=== PATIENT | female | born 1965 | race Two or more races ===

== ENCOUNTER 2020-01-19 07:49 | Outpatient (REF) | payer OTHER, SELFPAY ==
--- NOTE | 2020-01-19 08:00 | MM_ITS ---
EXAMINATION: MM SCREENING DIGITAL BREAST TOMOSYNTHESIS, BILATERAL CLINICAL INFORMATION: Screening. Asymptomatic. The lifetime risk of breast cancer based on the Tyrer-Cuzick Model is 9%. COMPARISON: Mammography: 01/13/2019, 11/23/2017 TECHNIQUE: Digital breast tomosynthesis is performed in both the craniocaudal and mediolateral oblique views along with computer-aided detection (CAD). Synthesized 2D images are generated from the tomosynthesis. Additional left cleavage and left MLO views are provided. FINDINGS: The breasts are almost entirely fatty (ACR BI-RADS breast composition Category a). There are no significant masses, abnormal calcifications, or other abnormalities. Parenchymal pattern is similar to prior exams. IMPRESSION: No mammographic evidence of malignancy. ASSESSMENT: BI-RADS 1: Negative RECOMMENDATION: Routine annual mammography screening. This patient's information was entered into a reminder system with a target due date for their next mammogram.
== END 2020-01-19 07:50 | disposition home or self-care (01) ==
LOC: HO.MAMMO 07:49
PROVIDERS: PCP Internal Medicine; Visit Provider Internal Medicine
DX: Z12.31 Encounter for screening mammogram for malignant neoplasm of breast (principal)
CPT/HCPCS: 77063; 77067; 78014

== ENCOUNTER → 2020-02-08 09:12 | Outpatient (BNVA) | payer OTHER, SELFPAY | PROVIDERS: PCP Internal Medicine; Visit Provider Internal Medicine | DX: I69.30 Unspecified sequelae of cerebral infarction (principal); Z51.81 Encounter for therapeutic drug level monitoring; Z79.01 Long term (current) use of anticoagulants | CPT/HCPCS: 85610; 99211 ==

== ENCOUNTER → 2020-03-07 09:03 | Outpatient (BNVA) | payer OTHER, SELFPAY | PROVIDERS: PCP Internal Medicine; Visit Provider Internal Medicine | DX: I69.30 Unspecified sequelae of cerebral infarction (principal); Z51.81 Encounter for therapeutic drug level monitoring; Z79.01 Long term (current) use of anticoagulants | CPT/HCPCS: 85610; 99211 ==

== ENCOUNTER → 2020-03-18 09:27 | Outpatient (BNVA) | payer OTHER, SELFPAY | PROVIDERS: PCP Internal Medicine; Visit Provider Internal Medicine | DX: I69.30 Unspecified sequelae of cerebral infarction (principal); Z51.81 Encounter for therapeutic drug level monitoring; Z79.01 Long term (current) use of anticoagulants | CPT/HCPCS: 85610; 99211 ==

== ENCOUNTER → 2020-04-01 09:04 | Outpatient (BNVA) | payer OTHER, SELFPAY | PROVIDERS: PCP Internal Medicine; Visit Provider Internal Medicine | DX: I69.30 Unspecified sequelae of cerebral infarction (principal); Z51.81 Encounter for therapeutic drug level monitoring; Z79.01 Long term (current) use of anticoagulants | CPT/HCPCS: 85610; 99211 ==

== ENCOUNTER → 2020-04-22 08:59 | Outpatient (BNVA) | payer OTHER, SELFPAY | PROVIDERS: PCP Internal Medicine; Visit Provider Internal Medicine | DX: Z86.73 Personal history of transient ischemic attack (TIA), and cerebral infarction without residual deficits (principal); Z51.81 Encounter for therapeutic drug level monitoring; Z79.01 Long term (current) use of anticoagulants | CPT/HCPCS: 85610; 99211 ==

== ENCOUNTER 2020-05-01 08:32 | Outpatient (REF) | payer OTHER, SELFPAY ==
[2020-05-01 09:46] LABS: MANUAL DIFF FLAG NO
[2020-05-01 10:10] LABS: Basophils Absolute Auto 0.1 X10*3/uL (0.0-0.2); Eosinophils Absolute Auto 0.1 X10*3/uL (0.0-0.4); Eosinophils Percent Auto 2.3 % (0-4); Hematocrit 41.1 % (37-47); Hemoglobin 12.6 g/dl (12.0-16.0); Imm Gran Abs Auto 0.01 X10*3/uL (0.00-0.03); Imm Gran Pct Auto 0.2 % (0.0-0.4); Lymphocytes Absolute Auto 1.8 X10*3/uL (1.2-4.9); Lymphocytes Percent Auto 33.9 % (20-40); Mean Corpuscular HGB Conc 30.7 g/dl (31.0-35.0); Mean Corpuscular Hemoglobin 25.1 pg (27.0-33.0); Monocytes Absolute Auto 0.5 X10*3/uL (0.1-1.2); Monocytes Percent Auto 9.3 % (2-11); Neutrophils Absolute Auto 2.8 X10*3/uL (2.0-8.3); Neutrophils Percent Auto 53.3 % (45-73); Platelet Count 205 X10*3/uL (160-400); Red Blood Count 5.01 X10*6/uL (4.20-5.50); Red Cell Distribution Width 15.7 % (11.0-16.0); White Blood Count 5.3 X10*3/uL (4.8-10.8)
[2020-05-01 10:41] LABS: Alanine Aminotransferase 26 U/L (0-31); Alkaline Phosphatase 87 U/L (39-117); Anion Gap 12 (12-20); Aspartate Amino Transferase 20 U/L (5-31); Bilirubin Total 0.3 mg/dL (0.0-1.0); Blood Urea Nitrogen 15 mg/dL (9-16); Calcium 8.5 mg/dL (8.4-10.2); Carbon Dioxide 27 mmol/L (22-29); Chloride 106 mmol/L (96-108); Cholesterol 122 mg/dL; Estimated Glomerular Filt Rate > 60; Glucose Fasting 101 mg/dL (60-99); HDL Cholesterol 44 mg/dL; LDL Cholesterol Calculated 66 mg/dl; Sodium 141 mmol/L (135-145); Total Protein 6.5 g/dL (6.5-8.0); Triglycerides 60 mg/dL
[2020-05-01 11:08] LABS: Creatinine Urine 218.25 mg/dL; Microalbum/Creatinine Ratio Ur 4.5 ug/mg cr
[2020-05-06 09:52] LABS: Vitamin D 25-OH, D2 <4 ng/mL; Vitamin D 25-OH, D3 25 ng/mL; Vitamin D 25-OH, Total 25 ng/mL (30-100)
== END 2020-05-01 08:33 | disposition home or self-care (01) ==
LOC: HO.LAB 08:32
PROVIDERS: Absent Provider Nurse Practitioner Family; PCP Internal Medicine; Visit Provider Internal Medicine
DX: Z01.818 Encounter for other preprocedural examination (principal); J45.909 Unspecified asthma, uncomplicated; E78.00 Pure hypercholesterolemia, unspecified; E11.9 Type 2 diabetes mellitus without complications; E55.9 Vitamin D deficiency, unspecified; E78.5 Hyperlipidemia, unspecified
CPT/HCPCS: 36415; 80053; 80061; 82043; 82306; 85025

== ENCOUNTER → 2020-05-07 09:14 | Outpatient (BNVA) | payer OTHER, SELFPAY | PROVIDERS: PCP Internal Medicine; Visit Provider Internal Medicine | DX: I69.30 Unspecified sequelae of cerebral infarction (principal); Z51.81 Encounter for therapeutic drug level monitoring; Z79.01 Long term (current) use of anticoagulants | CPT/HCPCS: 85610; 99211 ==

== ENCOUNTER → 2020-05-16 08:35 | Outpatient (BNVA) | payer OTHER, SELFPAY | PROVIDERS: PCP Internal Medicine; Visit Provider Internal Medicine Cardiovascular Disease | DX: R07.2 Precordial pain (principal); I10 Essential (primary) hypertension; Z86.73 Personal history of transient ischemic attack (TIA), and cerebral infarction without residual deficits | CPT/HCPCS: 99212 ==

== ENCOUNTER → 2020-06-04 09:25 | Outpatient (BNVA) | payer OTHER, SELFPAY | PROVIDERS: PCP Internal Medicine; Visit Provider Internal Medicine | DX: I69.30 Unspecified sequelae of cerebral infarction (principal); Z51.81 Encounter for therapeutic drug level monitoring; Z79.01 Long term (current) use of anticoagulants | CPT/HCPCS: 85610; 99211 ==

== ENCOUNTER → 2020-06-19 08:03 | Outpatient (REF) | payer OTHER, SELFPAY ==
--- NOTE | ~2020-06-19 | NM_ITS ---
Myocardial perfusion study Indication: Chest pain to evaluate for myocardial ischemia Technique: The patient was brought in for a Lexiscan perfusion study on 06/19/2020. Patient performed low-level exercise and was injected 0.4 mg of Lexiscan intravenously. Within a minute of injection, 35 mCi of sestamibi was given intravenously. Images were obtained using the SPECT gamma camera interlaced with the gating device. Images were obtained in supine position. Resting perfusion study was performed on 06/20/2020. Patient was administered 35 mCi of sestamibi intravenously at rest. Images were then obtained in supine position. Images were obtained with and without CT attenuation. Total DLP 138 mGy-cm. Images were processed with the software and compared side to side in short axis, horizontal long axis and vertical long axis views. Findings: The stress perfusion study showed both attenuated and not attenuated corrected images show normal uptake of radiotracer in all segments of LV myocardium. Suggestion of left ventricle hypertrophy.. The gated study shows normal LV systolic function with calculated LVEF of 60%. LV cavity is normal size. The gated study shows normal systolic wall thickening and contraction of segments. Resting study shows non attenuated images show normal uptake of radiotracer in all segments of LV myocardium. Gating at rest reveals normal systolic wall motion with ejection fraction at 64%. The findings are consistent with normal myocardial perfusion. NM/NM richard perf SPECT rest & str Impression: 1. Myocardial perfusion imaging study shows normal myocardial perfusion 2. Gated LVEF is 60% 3. Transient ischemic dilatation not present EKG is nondiagnostic for ischemia
--- NOTE | 2020-06-19 08:07 | CA_ITS ---
Transthoracic Echocardiogram Patient (Last, First, Middle): Lori Arellano, Gender: Female Date of : 1965 Age: 54 Procedure Date: 06/19/2020 Procedure Type: Transthoracic Echocardiogram Location: OP Height: 160.02 cm Weight: 106.6 kg BSA: 2.07 m2 Heart Rate: bpm BP: 130 / 71 mmHg Gluing Machine Offbearer: VARUN Referring MD: Gilberto White MD Symptoms: R07.2 - Precordial pain Study Quality: Fair ECG Rhythm: Sinus Conclusions: - The left ventricular systolic function is normal. The visually estimated ejection fraction is between 65-70%. - No obvious valvular pathology seen on this study. Findings Procedure Information Contrast agent, definity, is being given per protocol without apparent complications. Left Ventricle Normal left ventricular cavity size. There is mildly increased left ventricular wall thickness. The left ventricular systolic function is normal. The visually estimated ejection fraction is between 65-70%. There is no evidence of regional wall motion abnormalities. E/E prime ratio is between 8 and 15 consistent with indeterminate filling pressures. Evidence suggests grade I (mild) diastolic dysfunction. Right Ventricle Normal right ventricular cavity size and systolic function. Atria The left atrium is normal in size. The right atrium is normal in size. Aortic Valve There is a normal trileaflet aortic valve. There is no aortic valve stenosis. There is no aortic valve regurgitation. Mitral Valve The mitral valve appears normal. There is no mitral valve regurgitation. There is no mitral valve stenosis. Pulmonic Valve The pulmonic valve was not well visualized. Tricuspid Valve Normal tricuspid valve structure. There is trace tricuspid valve regurgitation. The pulmonary artery systolic pressure is normal. Great Vessels The aortic annulus, sinuses of valsalva, and asc aorta are normal in size. Venous The inferior vena cava is normal in size and collapses greater than 50% with inspiration. Pericardium/Pleural There is no evidence of pericardial effusion. Prior Study Comparison No prior study available for comparison. Recommendations, Care & Conclusions No obvious valvular pathology seen on this study. Measurements 2D Linear Measurements IVSd: 1.38 0.6-0.9/0.6-1.0 cm LVIDd: 4.06 3.9-5.3/4.2-5.9 cm LVIDd Index: 1.96 2.4-3.2/2.2-3.1 cm/m2 LVIDs: 2.33 2.0-3.6 cm LVPWd: 1.13 0.7-1.1 cm Ao Root: 2.50 2.1-3.5 cm LA Diam: 3.90 2.7-3.8/3.0-4.0 cm LAIDs Index: 1.88 1.5-2.3 cm/m2 LV Mass: 225.34 67-162/88-224 g LV Mass Index: 108.86 43-95/49-115 g/m2 LVOT Diam: 2.00 3.0+(-)1.3 cm Mitral Valve MV Pk E: 0.67 MV PK A: 0.53 MV Decel Time: 117.00 E/A: 1.30 E'Lateral: 6.85 E'Medial: 5.44 E/E' Med: 12.40 E/E' Lat: 9.80 PHT: 34.00 MVA PHT: 6.47 Decel [place]: 5.77 Aortic Valve AoV Pk Ari: 1.30 AoV Pk Grad: 7.00 LVOT LVOT Pk Ari: 1.26 LVOT Mn Ari: 0.76 LVOT VTI: 0.24 LVOT Pk Grad: 6.00 LVOT Mn Grad: 3.00 LVOT Diam: 2.00 LVOT Area: 3.14 Diastolic Function MV Pk E: 0.67 MV Pk A: 0.53 E/A: 1.30 E'Medial: 5.44 E/E' Med: 12.40 E' Laterial: 6.85 E/E' Lat: 9.80 Tricuspid Valve TR Pk Ari: 2.09 TR Pk Grad: 17.00 RA Press: 3.00 RVSP: 20.00 Great Vessels Aorta Ao Root-2D: 2.50 2.0-3.7 cm Ao Asc: 3.40 2.1-3.4 cm Updated in Other Vendor System with Status of Final Vikas Covington MD electronically signed on 06/20/2020 11:43:27 AM with status of Final
--- NOTE | 2020-06-19 08:07 | CA_ITS ---
Acquisition Time: 2020-06-19 09:54:50 Total Exercise Time: 00:02:00 Test Indications: Abnormal ECG Medications: WARFARIN OMEORAZOLE METFORMIN LISINOPRIL ATORVASTATIN Protocol: LEXISCAN Max HR: 109 BPM 66% of Pred: 165 BPM Max BP: 142/078 mmHG Max Work Load: 1.0 METS Pharmacological stress test using Lexiscan while sitting and kicking her feet. Pt tolerated well, denies any anginal sx. EKG without any arrhythmias, non-diagnostic for ischemia. Nuclear images to follow. Normotensive response to test. Test reviewed with Dr. White. Referred By: Gilberto White Overread By:
== END ==
LOC: HO.CARD 08:03
PROVIDERS: Visit Provider Internal Medicine Cardiovascular Disease
DX: R07.2 Precordial pain (principal); I10 Essential (primary) hypertension; E11.9 Type 2 diabetes mellitus without complications; Z86.73 Personal history of transient ischemic attack (TIA), and cerebral infarction without residual deficits
CPT/HCPCS: 78452; 93017; 93306; A9500; J0280; J2785; Q9957

== ENCOUNTER → 2020-06-25 08:37 | Outpatient (BNVA) | payer OTHER, SELFPAY | PROVIDERS: PCP Internal Medicine; Visit Provider Internal Medicine Cardiovascular Disease | DX: R07.9 Chest pain, unspecified (principal); Z79.899 Other long term (current) drug therapy; Z79.82 Long term (current) use of aspirin; Z87.891 Personal history of nicotine dependence | CPT/HCPCS: 99212 ==

== ENCOUNTER → 2020-07-02 09:19 | Outpatient (BNVA) | payer OTHER, SELFPAY | PROVIDERS: PCP Internal Medicine; Visit Provider Internal Medicine | DX: I69.30 Unspecified sequelae of cerebral infarction (principal); Z51.81 Encounter for therapeutic drug level monitoring; Z79.01 Long term (current) use of anticoagulants | CPT/HCPCS: 85610; 99211 ==

== ENCOUNTER → 2020-07-16 08:46 | Outpatient (BNVA) | payer OTHER, SELFPAY | PROVIDERS: PCP Internal Medicine; Visit Provider Internal Medicine | DX: I69.30 Unspecified sequelae of cerebral infarction (principal); Z51.81 Encounter for therapeutic drug level monitoring; Z79.01 Long term (current) use of anticoagulants | CPT/HCPCS: 85610; 99211 ==

== ENCOUNTER → 2020-07-22 12:06 | Outpatient (BNVA) | payer OTHER, SELFPAY | PROVIDERS: Visit Provider Surgery ==

== ENCOUNTER → 2020-08-13 08:58 | Outpatient (BNVA) | payer OTHER, SELFPAY | PROVIDERS: PCP Internal Medicine; Visit Provider Internal Medicine | DX: Z86.73 Personal history of transient ischemic attack (TIA), and cerebral infarction without residual deficits (principal); Z51.81 Encounter for therapeutic drug level monitoring; Z79.01 Long term (current) use of anticoagulants | CPT/HCPCS: 85610; 99211 ==

== ENCOUNTER → 2020-09-04 09:07 | Outpatient (BNVA) | payer OTHER, SELFPAY | PROVIDERS: PCP General Practice; Visit Provider Internal Medicine | DX: Z86.73 Personal history of transient ischemic attack (TIA), and cerebral infarction without residual deficits (principal); Z51.81 Encounter for therapeutic drug level monitoring; Z79.01 Long term (current) use of anticoagulants | CPT/HCPCS: 85610; 99211 ==

== ENCOUNTER → 2020-10-29 10:08 | Outpatient (BNVA) | payer OTHER, SELFPAY | PROVIDERS: PCP General Practice; Referring Provider General Practice; Visit Provider Surgery | DX: E66.9 Obesity, unspecified (principal); Z68.39 Body mass index [BMI] 39.0-39.9, adult | CPT/HCPCS: 99202 ==

== ENCOUNTER → 2020-11-19 13:24 | Outpatient (BNVA) | payer OTHER, SELFPAY | PROVIDERS: PCP General Practice; Referring Provider General Practice; Visit Provider Nurse Practitioner Family | DX: Z01.818 Encounter for other preprocedural examination (principal); E66.01 Morbid (severe) obesity due to excess calories; E78.00 Pure hypercholesterolemia, unspecified; E11.9 Type 2 diabetes mellitus without complications; I10 Essential (primary) hypertension; Z86.73 Personal history of transient ischemic attack (TIA), and cerebral infarction without residual deficits | CPT/HCPCS: 93005; 99212 ==

== ENCOUNTER → 2020-11-21 08:20 | Outpatient (BNVA) | payer OTHER, SELFPAY | PROVIDERS: PCP General Practice; Visit Provider Surgery | CPT/HCPCS: Q3014 ==

== ENCOUNTER → 2020-11-25 09:48 | Outpatient (BNVA) | payer OTHER, SELFPAY | PROVIDERS: PCP General Practice; Referring Provider General Practice; Visit Provider Dietitian, Registered | DX: E66.9 Obesity, unspecified (principal); Z68.39 Body mass index [BMI] 39.0-39.9, adult | CPT/HCPCS: 97802 ==

== ENCOUNTER 2020-11-28 | Outpatient (REF) | payer OTHER, SELFPAY ==
[2020-11-30 15:11] LABS: H Pylori Breath Test DETECTED (NOT DETECTED)
== END 2020-11-28 00:01 | disposition home or self-care (01) ==
LOC: HO.LNP
PROVIDERS: Visit Provider Surgery
DX: Z01.818 Encounter for other preprocedural examination (principal); Z11.0 Encounter for screening for intestinal infectious diseases
CPT/HCPCS: 83013

== ENCOUNTER → 2020-11-28 09:37 | Outpatient (BNVA) | payer OTHER, SELFPAY | PROVIDERS: PCP General Practice; Visit Provider Physician Assistant | DX: Z11.0 Encounter for screening for intestinal infectious diseases (principal) | CPT/HCPCS: 99211 ==

== ENCOUNTER → 2020-12-31 08:16 | Outpatient (BNVA) | payer OTHER, SELFPAY | PROVIDERS: PCP General Practice; Referring Provider General Practice; Visit Provider Dietitian, Registered | DX: E66.9 Obesity, unspecified (principal); Z68.39 Body mass index [BMI] 39.0-39.9, adult | CPT/HCPCS: 97803 ==

== ENCOUNTER 2021-01-10 08:02 | Outpatient (REF) | payer OTHER, SELFPAY ==
--- NOTE | ~2021-01-10 | XR_ITS ---
EXAMINATION: XR CHEST CLINICAL INFORMATION: Shortness of breath COMPARISON: Previous chest x-ray November 2015 TECHNIQUE: 2 views of the chest were obtained. FINDINGS: The cardiac and mediastinal contours are normal. The lungs are clear. There is no pleural effusion or pneumothorax. There are degenerative changes spine. There is a small sclerotic density in the left proximal humerus measuring 1 x 2 cm that is stable XR/XR chest 2V IMPRESSION: No evidence for acute disease in chest.
--- NOTE | 2021-01-10 08:11 | ECG_ITS ---
Test Reason : sob Blood Pressure : / mmHG Vent. Rate : 059 BPM Atrial Rate : 059 BPM P-R Int : 168 ms QRS Dur : 080 ms QT Int : 426 ms P-R-T Axes : 051 003 010 degrees QTc Int : 421 ms Sinus bradycardia Inferior infarct , age undetermined Abnormal ECG No previous ECGs available Referred By: Rosie Ochoa Electronically Signed By:SAADIA HA
[2021-01-10 08:53] LABS: MANUAL DIFF FLAG NO
[2021-01-10 08:57] LABS: Basophils Absolute Auto 0.1 X10*3/uL (0.0-0.2); Basophils Percent Auto 1.2 % (0-2); Eosinophils Absolute Auto 0.1 X10*3/uL (0.0-0.4); Eosinophils Percent Auto 1.2 % (0-4); Hemoglobin 13.2 g/dl (12.0-16.0); Imm Gran Abs Auto 0.01 X10*3/uL (0.00-0.03); Imm Gran Pct Auto 0.2 % (0.0-0.4); Lymphocytes Absolute Auto 1.6 X10*3/uL (1.2-4.9); Lymphocytes Percent Auto 31.8 % (20-40); Mean Corpuscular HGB Conc 30.7 g/dl (31.0-35.0); Mean Corpuscular Hemoglobin 25.2 pg (27.0-33.0); Mean Corpuscular Volume 82.1 fL (80-98); Mean Platelet Volume 11.3 fL (9.4-12.3); Monocytes Absolute Auto 0.4 X10*3/uL (0.1-1.2); Monocytes Percent Auto 8.6 % (2-11); Neutrophils Absolute Auto 2.8 X10*3/uL (2.0-8.3); Platelet Count 221 X10*3/uL (160-400); Red Blood Count 5.24 X10*6/uL (4.20-5.50); Red Cell Distribution Width 15.5 % (11.0-16.0); White Blood Count 4.9 X10*3/uL (4.8-10.8)
[2021-01-10 09:19] LABS: Alanine Aminotransferase 23 U/L (0-31); Albumin Level 4.1 g/dL (3.5-5.0); Alkaline Phosphatase 77 U/L (39-117); Anion Gap 12 (12-20); Aspartate Amino Transferase 19 U/L (5-31); Bilirubin Total 0.3 mg/dL (0.0-1.0); Blood Urea Nitrogen 21 mg/dL (9-16); C Reactive Protein 0.42 mg/dL (< or = 0.50); Carbon Dioxide 24 mmol/L (22-29); Chloride 110 mmol/L (96-108); Cholesterol 144 mg/dL; Estimated Glomerular Filt Rate > 60; Glucose Fasting 107 mg/dL (60-99); HDL Cholesterol 43 mg/dL; Iron 43 mcg/dL (30-160); LDL Cholesterol Calculated 92 mg/dl; Percent Iron Saturation 12 % (15-50); Sodium 142 mmol/L (135-145); Total Iron Binding Capacity 354 mcg/dL (228-428); Total Protein 6.7 g/dL (6.5-8.0); Triglycerides 49 mg/dL; Unsaturated Iron Binding 311 ug/dL
[2021-01-10 09:26] LABS: Creatinine Urine 218.69 mg/dL
[2021-01-10 09:43] LABS: Thyroid Stimulating Hormone 2.68 uIU/mL (0.32-4.0); Vitamin D 25-OH Total 32.5 ng/mL (>30)
[2021-01-10 09:56] LABS: Vitamin B12 427 pg/mL (200-900)
[2021-01-10 10:00] LABS: Estimated Average Glucose 126 mg/dL
[2021-01-14 08:47] LABS: Calcium (PTHI) 8.9 mg/dL (8.6-10.4); PTHI 93 pg/mL (14-64)
[2021-01-14 15:52] LABS: Zinc 81 mcg/dL (60-130)
[2021-01-16 10:02] LABS: Vitamin B1 13 nmol/L (8-30)
[2021-01-17 11:20] LABS: Vitamin A 43 mcg/dL (38-98)
== END 2021-01-10 08:03 | disposition home or self-care (01) ==
LOC: HO.XRAY 08:02
PROVIDERS: Internal Medicine; PCP General Practice; Visit Provider Surgery
DX: Z01.818 Encounter for other preprocedural examination (principal); K91.2 Postsurgical malabsorption, not elsewhere classified; R06.02 Shortness of breath; E11.9 Type 2 diabetes mellitus without complications; Z90.3 Acquired absence of stomach [part of]
CPT/HCPCS: 36415; 71046; 80053; 80061; 82043; 82306; 82607; 83036; 83540; 83970; 84425; 84443; 84590; 84630; 85025; 86140; 93005

== ENCOUNTER → 2021-01-14 09:22 | Outpatient (BNVA) | payer OTHER, SELFPAY | PROVIDERS: PCP General Practice; Referring Provider General Practice; Visit Provider Surgery | DX: E66.9 Obesity, unspecified (principal); Z68.38 Body mass index [BMI] 38.0-38.9, adult | CPT/HCPCS: 99212 ==

== ENCOUNTER → 2021-01-16 08:00 | Outpatient (BNVA) | payer OTHER, SELFPAY | PROVIDERS: PCP General Practice; Referring Provider Surgery; Visit Provider Dietitian, Registered | DX: E66.01 Morbid (severe) obesity due to excess calories (principal); Z68.38 Body mass index [BMI] 38.0-38.9, adult | CPT/HCPCS: 97803 ==

== ENCOUNTER 2021-01-31 08:52 | Outpatient (REF) | payer OTHER, SELFPAY ==
--- NOTE | ~2021-01-31 | MM_ITS ---
EXAMINATION: MM SCREENING DIGITAL BREAST TOMOSYNTHESIS, BILATERAL CLINICAL INFORMATION: Screening. Asymptomatic. The lifetime risk of breast cancer based on the Tyrer-Cuzick Model is 7%. COMPARISON: Mammography: 01/19/2020, 01/13/2019, 11/23/2017 TECHNIQUE: Digital breast tomosynthesis is performed in both the craniocaudal and mediolateral oblique views along with computer-aided detection (CAD). Synthesized 2D images are generated from the tomosynthesis. FINDINGS: The breasts are almost entirely fatty (ACR BI-RADS breast composition Category a). Stromal markings are stable. There is no interval mass or developing density. No abnormal calcifications. Parenchymal pattern is similar to prior studies. The axilla and skin contours are unremarkable. MM/MM tomosynthesis screening BI IMPRESSION: No mammographic evidence of malignancy. ASSESSMENT: BI-RADS 1: Negative RECOMMENDATION: Routine annual mammography screening. This patient's information was entered into a reminder system with a target due date for their next mammogram.
[2021-02-02 14:14] LABS: H Pylori Breath Test Negative (Negative)
== END 2021-01-31 08:53 | disposition home or self-care (01) ==
LOC: HO.MAMMO 08:52
PROVIDERS: Surgery; PCP General Practice; Visit Provider General Practice
DX: Z01.818 Encounter for other preprocedural examination (principal); E66.9 Obesity, unspecified; A04.8 Other specified bacterial intestinal infections; Z12.31 Encounter for screening mammogram for malignant neoplasm of breast; Z79.899 Other long term (current) drug therapy; Z87.891 Personal history of nicotine dependence
CPT/HCPCS: 36415; 77063; 77067; 83013; 99212

== ENCOUNTER → 2021-02-25 08:01 | Outpatient (BNVA) | payer OTHER, SELFPAY | PROVIDERS: PCP General Practice; Referring Provider Surgery; Visit Provider Dietitian, Registered | DX: E66.9 Obesity, unspecified (principal); Z68.38 Body mass index [BMI] 38.0-38.9, adult | CPT/HCPCS: 97803 ==

== ENCOUNTER → 2021-03-04 16:03 | Outpatient (BNVA) | payer OTHER, SELFPAY | PROVIDERS: PCP General Practice; Referring Provider General Practice; Visit Provider Physician Assistant Surgical | DX: E66.9 Obesity, unspecified (principal); Z68.38 Body mass index [BMI] 38.0-38.9, adult | CPT/HCPCS: 99212 ==

== ENCOUNTER → 2021-03-24 08:04 | Outpatient (BNVA) | payer OTHER, SELFPAY | PROVIDERS: PCP General Practice; Referring Provider Surgery; Visit Provider Dietitian, Registered ==

== ENCOUNTER → 2021-03-25 08:03 | Outpatient (BNVA) | payer OTHER, SELFPAY | PROVIDERS: PCP General Practice; Visit Provider Dietitian, Registered ==

== ENCOUNTER → 2021-03-26 08:09 | Outpatient (BNVA) | payer OTHER, SELFPAY | PROVIDERS: PCP General Practice; Visit Provider Dietitian, Registered ==

== ENCOUNTER → 2021-03-28 08:08 | Outpatient (BNVA) | payer OTHER, SELFPAY | PROVIDERS: PCP General Practice; Visit Provider Physician Assistant Surgical | DX: Z13.89 Encounter for screening for other disorder (principal) | CPT/HCPCS: Q3014 ==

== ENCOUNTER → 2021-04-03 08:15 | Outpatient (BNVA) | payer OTHER, SELFPAY | PROVIDERS: PCP General Practice; Referring Provider General Practice; Visit Provider Physician Assistant ==

== ENCOUNTER → 2021-04-04 10:32 | Outpatient (BNVA) | payer OTHER, SELFPAY | PROVIDERS: PCP General Practice; Referring Provider General Practice; Visit Provider Surgery | DX: E66.01 Morbid (severe) obesity due to excess calories (principal); K21.9 Gastro-esophageal reflux disease without esophagitis; Z68.37 Body mass index [BMI] 37.0-37.9, adult | CPT/HCPCS: 99212 ==

== ENCOUNTER → 2021-04-09 11:49 | Outpatient (BNVA) | payer OTHER, SELFPAY | PROVIDERS: PCP General Practice; Referring Provider General Practice; Visit Provider Physician Assistant Surgical ==

== ENCOUNTER 2021-04-28 09:18 | Outpatient (REF) | payer OTHER, SELFPAY ==
--- NOTE | ~2021-04-28 | FL_ITS ---
EXAMINATION: XR FLUOROSCOPY UPPER GI WITH AIR CLINICAL INFORMATION: Gastroesophageal reflux disease without esophagitis. COMPARISON: None. TECHNIQUE: Routine upper GI air-contrast study was performed. FINDINGS: Following oral administration of thick barium and effervescent granules, there is normal propagation of bolus from the oral cavity through the pharynx and esophagus and into the stomach without any evidence of obstruction, narrowing or stricture. On placing patient supine and prone lying, the course, caliber and peristalsis of the stomach and the duodenal bulb are normal. The mucosal pattern of the esophagus, stomach and the duodenum is normal. There is [id number] gastroesophageal reflux without hiatal hernia. FLUOROSCOPY TIME: 2.3 minutes DOSE AREA PRODUCT: 273 uGy-m2 (microgray-meter squared) FL/FL upper GI w air IMPRESSION: Moderate to large gastroesophageal reflux otherwise unremarkable upper GI study
--- NOTE | ~2021-04-28 | US_ITS ---
EXAMINATION: US COMPLETE ABDOMEN WITH LIVER ELASTOGRAPHY CLINICAL INFORMATION: Obesity COMPARISON: Previous CT of the abdomen and pelvis November 2015 TECHNIQUE: Real-time imaging of the abdominal viscera. Noninvasive ultrasound liver fibrosis assessment is performed using Galen ElastPQ point quantification shear wave elastography (2D-SWE) with a C5-2 MHz transducer. Multiple elastography samples are obtained. FINDINGS: PANCREAS: Normal. ABDOMINAL AORTA: There is mild ectasia of the distal abdominal aorta measuring 2.4 cm in AP dimension. INFERIOR VENA CAVA: Visualized portions are normal. LIVER: Liver echotexture is slightly increased. The liver demonstrates normal size and contour. No focal lesion or intrahepatic biliary duct dilatation. The right lobe measures 15.5 cm in length. The left lobe measures 10 cm in length. Portal flow is normal/hepatopedal Shear wave liver elastography median stiffness is 1.3 m/s (reference: normal median stiffness is 1.3 m/s or less). IQR/median stiffness to assess sampling precision is 0.15 (reference: good quality data set is IQR/median stiffness of 0.15 or less). GALLBLADDER: Normal. The gallbladder is physiologically distended without evidence of stones, sludge, polyps, wall thickening or pericholecystic fluid. COMMON BILE DUCT: Normal in caliber measuring 0.3 cm in diameter. RIGHT KIDNEY: Normal. No hydronephrosis. No renal calculi or focal parenchymal lesions. The kidney measures 10 cm in maximum dimension. LEFT KIDNEY: Normal. No hydronephrosis. No renal calculi or focal parenchymal lesions. The kidney measures 10 cm in maximum dimension. SPLEEN: Normal. The spleen measures 10 cm in maximum dimension. FREE FLUID: None. US/US abdomen comp w elastography IMPRESSION: 1. Impression: Slightly echogenic liver. Mild ectasia of the distal abdominal aorta. 2. Liver elastography: Adequate liver sampling. High probability of being normal. REFERENCE: Society of Radiologists in Ultrasound Liver Stiffness Thresholds (2020): LIVER STIFFNESS THRESHOLDS: *Liver Stiffness equal or less than 1.3 m/s: High probability of being normal. *Liver Stiffness less than 1.7 m/s: In the absence of other known clinical signs, rules out compensated advanced chronic liver disease. *Liver Stiffness 1.7-2.1 m/s: Suggestive of compensated advanced chronic liver disease but need further test for confirmation. *Liver Stiffness over 2.1 m/s: Rules in compensated advanced chronic liver disease. *Liver Stiffness over 2.4 m/s: Suggestive of clinically significant portal hypertension. QUALITY OF DATA SET: *IQR/Median value equal or less than 0.15 implies a quality data set. *IQR/Median value over 0.15 implies a poor quality data set. SIGNIFICANT CHANGE FROM PRIOR EXAM: Significant change if liver stiffness measurement is 10% or greater from prior exam. OTHER CONSIDERATIONS: The stage of liver fibrosis may be overestimated in the setting of acute hepatitis, liver inflammation, elevated liver function tests, hepatic vascular congestion, obstructive cholestasis, non-fasting state, and infiltrative diseases such as amyloidosis and lymphoma. In some patients with NAFLD, the liver stiffness thresholds for compensated advanced chronic liver disease may be lower. In causes other than viral hepatitis and NAFLD, liver stiffness thresholds are not well established.
== END 2021-04-28 09:19 | disposition home or self-care (01) ==
LOC: HO.US 09:18
PROVIDERS: PCP General Practice; Visit Provider Surgery
DX: K21.9 Gastro-esophageal reflux disease without esophagitis (principal); E66.01 Morbid (severe) obesity due to excess calories
CPT/HCPCS: 74246; 76705; 76981

== ENCOUNTER → 2021-04-30 08:08 | Outpatient (BNVA) | payer OTHER, SELFPAY | PROVIDERS: PCP General Practice; Visit Provider Surgery | DX: E66.9 Obesity, unspecified (principal); K21.9 Gastro-esophageal reflux disease without esophagitis; E11.9 Type 2 diabetes mellitus without complications; I10 Essential (primary) hypertension; Z79.01 Long term (current) use of anticoagulants; Z68.36 Body mass index [BMI] 36.0-36.9, adult | CPT/HCPCS: Q3014 ==

== ENCOUNTER 2021-05-02 07:44 | Outpatient (REF) | payer OTHER, SELFPAY ==
[2021-05-02 08:12] LABS: MANUAL DIFF FLAG NO
[2021-05-02 08:19] LABS: Basophils Absolute Auto 0.1 X10*3/uL (0.0-0.2); Basophils Percent Auto 1.5 % (0-2); Eosinophils Absolute Auto 0.1 X10*3/uL (0.0-0.4); Eosinophils Percent Auto 2.5 % (0-4); Hematocrit 42.1 % (37.0-47.0); Imm Gran Abs Auto 0.01 X10*3/uL (0.00-0.03); Imm Gran Pct Auto 0.2 % (0.0-0.4); Lymphocytes Absolute Auto 1.4 X10*3/uL (1.2-4.9); Lymphocytes Percent Auto 34.5 % (20-40); Mean Corpuscular HGB Conc 30.9 g/dl (31.0-35.0); Mean Corpuscular Hemoglobin 25.8 pg (27.0-33.0); Mean Corpuscular Volume 83.5 fL (80.0-98.0); Mean Platelet Volume 10.2 fL (9.4-12.3); Monocytes Absolute Auto 0.4 X10*3/uL (0.1-1.2); Monocytes Percent Auto 9.4 % (2-11); Neutrophils Absolute Auto 2.1 x10*3/uL (2.0-8.3); Neutrophils Percent Auto 51.9 % (45-73); Platelet Count 209 X10*3/uL (160-400); Red Blood Count 5.04 X10*6/uL (4.20-5.50); Red Cell Distribution Width 14.5 % (11.0-16.0)
[2021-05-02 08:28] LABS: Prothrombin Time 11.9 SEC (9.9-13.0)
[2021-05-02 08:31] LABS: Estimated Average Glucose 126 mg/dL; Partial Thromboplastin Time 35.5 SEC (24.1-38.0)
[2021-05-02 08:44] LABS: Alanine Aminotransferase 23 U/L (0-31); Albumin Level 3.9 g/dL (3.5-5.0); Alkaline Phosphatase 74 U/L (39-117); Anion Gap 10 (12-20); Aspartate Amino Transferase 20 U/L (5-31); Bilirubin Total 0.5 mg/dL (0.0-1.0); Blood Urea Nitrogen 18 mg/dL (9-16); C Reactive Protein 0.26 mg/dL (< or = 0.50); Calcium 9.2 mg/dL (8.4-10.2); Carbon Dioxide 25 mmol/L (22-29); Chloride 109 mmol/L (96-108); Cholesterol 115 mg/dL; Estimated Glomerular Filt Rate > 60; Glucose Random 101 mg/dL (60-115); HDL Cholesterol 36 mg/dL; LDL Cholesterol Calculated 64 mg/dl; Potassium 3.8 mmol/L (3.3-5.1); Sodium 140 mmol/L (135-145); Total Protein 6.4 g/dL (6.5-8.0); Triglycerides 77 mg/dL
[2021-05-02 09:06] LABS: Insulin 10 uU/mL (2-29); TSH reflex Free T4 2.26 uIU/mL (0.32-4.0)
== END 2021-05-02 07:45 | disposition home or self-care (01) ==
LOC: HO.LAB 07:44
PROVIDERS: PCP General Practice; Visit Provider Surgery
DX: E11.9 Type 2 diabetes mellitus without complications (principal); E66.9 Obesity, unspecified; Z68.39 Body mass index [BMI] 39.0-39.9, adult; I10 Essential (primary) hypertension; Z79.01 Long term (current) use of anticoagulants
CPT/HCPCS: 36415; 80053; 80061; 83036; 83525; 84443; 85025; 85610; 85730; 86140

== ENCOUNTER 2021-05-08 10:47 | Inpatient (IN) | payer OTHER, SELFPAY ==
[2021-04-30 10:21] VITALS: BMI 36.9
--- NOTE | 2021-05-03 23:20 | MHC.SHP ---
Pre-Procedural Eval Section A Date of Service: 05/03/21 The patient is an INPATIENT: Yes The History & Physical has been completed within 30 days and I have reviewed it.: Yes Section B Chief Complaint: obesity Relevant Family History (Specify if Yes): No Relevant Social History: None Present Medications: None Medical History: No relevant PMH History of Previous Operations: No relevant previous surgery Allergies: Allergies Allergy/AdvReac Type Severity Reaction Status Date / Time latex [LATEX] Allergy Mild RASH, HIVES Verified 04/30/21 12:23 aspirin [ASA] Allergy Unknown GI bleed Verified 04/30/21 12:23 Penicillins [PCN] Allergy Unknown HIVES Verified 04/30/21 12:23 Review of Systems Sugical H&P ROS: Negative: Constitution, Cardiovascular, Respiratory, Neurological, Psychiatric, Hem-Onc, Allergic/Immunologic, Gastrointestinal, Genitourinary, Musculoskeletal, Integumentary, Endocrine and Eyes/Ears/Nose/Throat Exam Surgical H&P Exam: Normal: HEENT, Normal: Heart, Normal: Lungs, Normal: Extremities, Normal: Abdomen, Normal: Skin and Normal: Neurological Plan Diagnosis/Plan: Unchanged I have reviewed the history and physical and performed a pertinent physical examination on my patient. No changes have occurred unless specified.
--- NOTE | 2021-05-07 10:11 | HO.ANESPROP2 ---
Documented by User: Sandy Toro NP 05/07/21 10:28 HPI - Anesthesia Eval Consult details Narrative: 55yo F for Gastrectomy Sleeve, EGD, poss diaphragmatic hernia, poss ventral hernia, poss open Eliquis for h/o stroke Cardiac cleared at low risk [facility] Active Problems Active Problems: All Active Problems (Updated 04/30/21 @ 12:41 by Paulino Castaneda MD) BMI 36.0-36.9,adult (Acute) Current use of anticoagulant therapy (Acute) Chest pain (Acute) Shortness of breath (Acute) Preoperative examination (Acute) Obesity (Acute) BMI 39.0-39.9,adult (Acute) Adjustment disorder, unspecified (Acute) Morbid obesity due to excess calories (Acute) H. pylori infection (Acute) Abnormal EKG (Acute) Obesity (BMI 35.0-39.9 without comorbidity) (Acute) BMI 40.0-44.9, adult (Acute) Epistaxis (Acute) History of stroke (Acute) Diabetes mellitus (Acute) Essential hypertension (Acute) Chronic anticoagulation (Acute) Hypovitaminosis D (Acute) Pure hypercholesterolemia (Acute) GERD (gastroesophageal reflux disease) (Acute) Allergic rhinitis (Acute) Moderate asthma (Acute) Morbid obesity (Acute) Encounter for pre-operative examination (Acute) Abnormal EKG (Acute) Past Medical History Medical History Abnormal EKG Allergic rhinitis BMI 40.0-44.9, adult Chronic anticoagulation Diabetes mellitus Epistaxis Essential hypertension GERD (gastroesophageal reflux disease) History of stroke Hypovitaminosis D Moderate asthma Morbid obesity On anticoagulant therapy Pure hypercholesterolemia Family History Family History Father No problems noted. Mother No problems noted. Sister No problems noted. Sister No problems noted. Sister No problems noted. Brother Stroke Brother Hx of heart surgery Brother No problems noted. Daughter No problems noted. Son No problems noted. Surgical History Surgical History History of ankle surgery History of left breast biopsy History of tubal ligation Hx of colonoscopy Social History Social History Household Members: Children Are you a primary home care administrator to a significant other at home: No Do you presently have visiting nurse or other home services: Yes ([employer]- 2x/week) Alcohol intake: never Patient Tobacco Use Status: Former Tobacco user Quit Date: 2014 Tobacco use type: Cigarette Years Smoked: 20 Use of substances other than those prescribed or required for medical reasons: No Have you been hit, kicked, punched, or otherwise hurt by someone within the past year? If so, by whom?: No Are you DNR?: No Advance Directives: No Advance Directives Information Provided: No Advance Directives on File: No Recently lost weight without trying: No How much weight loss: 14-23 pounds Eating poorly because of decreased appetite: No Nutrition screen score: 2 Nutrition Risks: No Nutritional Risk Patient : No Meds Allergies Allergy/AdvReac Type Severity Reaction Status Date / Time latex [LATEX] Allergy Mild RASH, HIVES Verified 05/08/21 10:56 aspirin [ASA] Allergy Unknown GI bleed Verified 05/08/21 10:56 Penicillins [PCN] Allergy Unknown HIVES Verified 05/08/21 10:56 Home Medications Medication Instructions Recorded Confirmed Last Taken Type ascorbate calcium (vitamin C) 500 500 mg PO BID 01/30/20 04/30/21 Unknown History mg tablet cyanocobalamin (vitamin B-12) 1,000 mcg PO DAILY 01/30/20 04/30/21 Unknown History 1,000 mcg capsule montelukast 10 mg tablet 10 mg PO DAILY 01/30/20 04/30/21 Unknown History apixaban 5 mg tablet (Eliquis) 5 mg PO BID 10/29/20 05/08/21 05/01/21 History atorvastatin 40 mg tablet 40 mg PO BEDTIME 04/04/21 04/30/21 Unknown History omeprazole 20 mg capsule,delayed 20 mg PO DAILY 04/04/21 04/30/21 Unknown History release calcium carbonate 500 mg calcium 500 mg PO DAILY 04/30/21 04/30/21 Unknown History (1,250 mg) chewable tablet lisinopril 20 mg tablet 1 tab PO DAILY 04/30/21 04/30/21 Unknown History metformin 500 mg tablet 500 mg PO QPM 04/30/21 04/30/21 Unknown History fluticasone furoate 100 1 puff PO DAILY 05/08/21 05/08/21 05/08/21 07:00 History mcg-vilanterol 25 mcg/dose inhalation powder (Breo Ellipta) Exam Exam Date and Time: May 07, 2021 1011 Height,Weight and Vital Signs: Height 5 ft 3 in Weight 94.529 kg Pertinent Lab Results Pertinent Lab Results: Laboratory Tests 05/02/21 08:05 Blood Type AB Positive Antibody Screen NEGATIVE Laboratory Tests 05/02/21 05/02/21 08:11 08:11 WBC 4.0 L Hgb 13.0 Hct 42.1 Plt Count 209 Sodium 140 Potassium 3.8 Chloride 109 H Carbon Dioxide 25 BUN 18 H Creatinine 0.71 Laboratory Tests 05/02/21 08:05 Blood Type AB Positive Antibody Screen NEGATIVE Narrative Narrative: Echo done 06/19/20 shows normal EF, no valve abn. Nuclear stress test 06/19/20 shows normal myocardial perfusion imaging, EF 60%. EKG today shows SR, low voltage QRS, likely related to body habitus. No report of anginal sounding symptoms.? Assessment and Plan Assessment Anesthesia Assessment: Chart Reviewed Documented by User: Tanja Downs MD 05/08/21 12:05 [facility] Past Medical History Medical History Abnormal EKG Allergic rhinitis BMI 40.0-44.9, adult Chronic anticoagulation Diabetes mellitus Epistaxis Essential hypertension GERD (gastroesophageal reflux disease) History of stroke Hypovitaminosis D Moderate asthma Morbid obesity On anticoagulant therapy Pure hypercholesterolemia Family History Family History Father No problems noted. Mother No problems noted. Sister No problems noted. Sister No problems noted. Sister No problems noted. Brother Stroke Brother Hx of heart surgery Brother No problems noted. Daughter No problems noted. Son No problems noted. Family history of problems with anesthesia: No Surgical History Surgical History History of ankle surgery History of left breast biopsy History of tubal ligation Hx of colonoscopy History of Problems with Anesthesia: No Social History Social History Household Members: Children Are you a primary home care administrator to a significant other at home: No Do you presently have visiting nurse or other home services: Yes ([employer]- 2x/week) Alcohol intake: never Patient Tobacco Use Status: Former Tobacco user Quit Date: 2014 Tobacco use type: Cigarette Years Smoked: 20 Use of substances other than those prescribed or required for medical reasons: No Have you been hit, kicked, punched, or otherwise hurt by someone within the past year? If so, by whom?: No Are you DNR?: No Advance Directives: No Advance Directives Information Provided: No Advance Directives on File: No Recently lost weight without trying: No How much weight loss: 14-23 pounds Eating poorly because of decreased appetite: No Nutrition screen score: 2 Nutrition Risks: No Nutritional Risk Patient : No Meds Allergies Allergy/AdvReac Type Severity Reaction Status Date / Time latex [LATEX] Allergy Mild RASH, HIVES Verified 05/08/21 10:56 aspirin [ASA] Allergy Unknown GI bleed Verified 05/08/21 10:56 Penicillins [PCN] Allergy Unknown HIVES Verified 05/08/21 10:56 Home Medications Medication Instructions Recorded Confirmed Last Taken Type ascorbate calcium (vitamin C) 500 500 mg PO BID 01/30/20 04/30/21 Unknown History mg tablet cyanocobalamin (vitamin B-12) 1,000 mcg PO DAILY 01/30/20 04/30/21 Unknown History 1,000 mcg capsule montelukast 10 mg tablet 10 mg PO DAILY 01/30/20 04/30/21 Unknown History apixaban 5 mg tablet (Eliquis) 5 mg PO BID 10/29/20 05/08/21 05/01/21 History atorvastatin 40 mg tablet 40 mg PO BEDTIME 04/04/21 04/30/21 Unknown History omeprazole 20 mg capsule,delayed 20 mg PO DAILY 04/04/21 04/30/21 Unknown History release calcium carbonate 500 mg calcium 500 mg PO DAILY 04/30/21 04/30/21 Unknown History (1,250 mg) chewable tablet lisinopril 20 mg tablet 1 tab PO DAILY 04/30/21 04/30/21 Unknown History metformin 500 mg tablet 500 mg PO QPM 04/30/21 04/30/21 Unknown History fluticasone furoate 100 1 puff PO DAILY 05/08/21 05/08/21 05/08/21 07:00 History mcg-vilanterol 25 mcg/dose inhalation powder (Breo Ellipta) Exam Airway Mallampati Class: III (Prominent upper central incisors) TM Dist: >3cm Neck ROM: Full Loose/Missing/Broken Teeth: No Heart: RRR Lungs: CTA Assessment and Plan Assessment Anesthesia Assessment: Anesthesia Plan Discussed Final Anesthetic Review Family History of Problems with Anesthesia: No History of Problems with Anesthesia: No NPO: Yes ASA Class: III Final Preanesthetic Review: Meds/Allgs Chart Reviewed, Consent Obtained/Reviewed and Anes Risks/Benef Reviewed Patient Risk: Intermediate Procedure Risk: Intermediate Anesthetic Plan Anesthetic Plan: GA Disposition: Standard PACU
[2021-05-07 13:48] LABS: COVID-19 Test Negative (Negative)
[2021-05-08] VITALS (12 sets, daily range): BP systolic 121–159; BP diastolic 58–78; PULSE 63–98; RESP 16–19; TEMP 36.1–37.2; O2SAT 97–100
--- NOTE | 2021-05-08 09:03 | P.CONAN_ITS ---
[facility] Active Problems Active Problems: All Active Problems (Updated 04/30/21 @ 12:41 by Paulino schmid MD) BMI 36.0-36.9,adult (Acute) Current use of anticoagulant therapy (Acute) Chest pain (Acute) Shortness of breath (Acute) Preoperative examination (Acute) Obesity (Acute) BMI 39.0-39.9,adult (Acute) Adjustment disorder, unspecified (Acute) Morbid obesity due to excess calories (Acute) H. pylori infection (Acute) Abnormal EKG (Acute) Obesity (BMI 35.0-39.9 without comorbidity) (Acute) BMI 40.0-44.9, adult (Acute) Epistaxis (Acute) History of stroke (Acute) Diabetes mellitus (Acute) Essential hypertension (Acute) Chronic anticoagulation (Acute) Hypovitaminosis D (Acute) Pure hypercholesterolemia (Acute) GERD (gastroesophageal reflux disease) (Acute) Allergic rhinitis (Acute) Moderate asthma (Acute) Morbid obesity (Acute) Encounter for pre-operative examination (Acute) Abnormal EKG (Acute) Past Medical History Medical History Abnormal EKG Allergic rhinitis BMI 40.0-44.9, adult Chronic anticoagulation Diabetes mellitus Epistaxis Essential hypertension GERD (gastroesophageal reflux disease) History of stroke Hypovitaminosis D Moderate asthma Morbid obesity On anticoagulant therapy Pure hypercholesterolemia Family History Family History Father No problems noted. Mother No problems noted. Sister No problems noted. Sister No problems noted. Sister No problems noted. Brother Stroke Brother Hx of heart surgery Brother No problems noted. Daughter No problems noted. Son No problems noted. 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) Alcohol intake: never Patient Tobacco Use Status: Former Tobacco user Quit Date: 2014 Tobacco use type: Cigarette Years Smoked: 20 Meds Allergies Allergy/AdvReac Type Severity Reaction Status Date / Time latex [LATEX] Allergy Mild RASH, HIVES Verified 04/30/21 12:23 aspirin [ASA] Allergy Unknown GI bleed Verified 04/30/21 12:23 Penicillins [PCN] Allergy Unknown HIVES Verified 04/30/21 12:23 Home Medications Medication Instructions Recorded Confirmed Last Taken Type ascorbate calcium (vitamin C) 500 500 mg PO BID 01/30/20 04/30/21 Unknown His tory mg tablet cyanocobalamin (vitamin B-12) 1,000 mcg PO DAILY 01/30/20 04/30/21 Unknown History 1,000 mcg capsule montelukast 10 mg tablet 10 mg PO DAILY 01/30/20 04/30/21 Unknown History apixaban 5 mg tablet (Eliquis) 5 mg PO BID 10/29/20 04/30/21 Unknown History atorvastatin 40 mg tablet 40 mg PO BEDTIME 04/04/21 04/30/21 Unknown History omeprazole 20 mg capsule,delayed 20 mg PO DAILY 04/04/21 04/30/21 Unknown History release calcium carbonate 500 mg calcium 500 mg PO DAILY 04/30/21 04/30/21 Unknown History (1,250 mg) chewable tablet lisinopril 20 mg tablet 1 tab PO DAILY 04/30/21 04/30/21 Unknown History metformin 500 mg tablet 500 mg PO QPM 04/30/21 04/30/21 Unknown History Exam Exam Date and Time: May 08, 2021 0903 Height,Weight and Vital Signs: Height 5 ft 3 in Weight 94.529 kg Pertinent Lab Results Pertinent Lab Results: Laboratory Tests 05/02/21 05/07/21 08:05 13:20 COVID-19 ([facility]) Negative COVID-19 Clin Com See Note Blood Type AB Positive Antibody Screen NEGATIVE
[2021-05-08 11:24] LABS: Glucose, Whole Blood 94 mg/dL (60-115)
[2021-05-08] MEDS: Lactated Ringers 1,000 ML 100 ML IVCONT (11:38)
[2021-05-08] MEDS: Lactated Ringers 1,000 ML 999 ML IV (11:38)
--- NOTE | 2021-05-08 11:59 | P.BOP_ITS ---
Brief Operative Note Date of Service: 05/08/21 Pre-op diagnosis: Severe obesity with comorbidities (see below) Post-op diagnosis: same Procedure: INITIAL PATIENT BMI ON PRESENTATION AT OUR OFFICE: 41 kg/m2 LAST BMI BEFORE SURGERY: 37.6 kg/m2 COMORBIDITIES: hypertension, non-insulin dependent diabetes, GEERD, CVA, asthma, liver steatosis, hyperlipidemia, left ventricular hypertrophy ?The patient presented to the Weight Management Program with significant obesity that was negatively impacting the patient's comorbidities as listed above.? The program is a phased program with a special focus on preoperative medical weight management to promote substantial weight loss and prepare the patients for the second phase of the program: bariatric surgery. The patient participated in an intensive weekly lifestyle ?intervention and exercise program during which the patient ?has lost between the initial office visit and the last preoperative visit 22 lbs, or 9.5% of initial actual body weight. It was deemed appropriate for the patient to now have bariatric surgery. In light of the current Covid-19 pandemic and the well documented strong association of obesity and increased risk of worse outcomes if infected with Covid-19 (REFERENCES: https://pubmed.ncbi.nlm.nih.gov/55771071/ ,? https://pubmed.ncbi.nlm.nih.gov/88684272/ ), any delay in undergoing bariatric surgery may lead to the patient's worsening health condition and increased?risk of more severe Covid-19 disease if infected. In addition a recent?study from [facility] published in [employer] on 04/14/2021 ([email or web address]) found that, among patients with obesity, substantial weight loss achieved with surgery was associated with improved outcomes of COVID-19 infection. The findings suggest that obesity can be a modifiable risk factor for the severity of COVID- 19 infection. In addition, the patient met the BMI-criteria for bariatric surgery based on the BMI on initial presentation. The patient should not be penalized for achieving such weight loss because ?it is not sustainable long-term without surgical intervention and it was achieved in preparation for bariatric surgery ?under my direction and based on my published research ([email or web address]).[email or web address] and? https://www.soard.org/article/[email or web address](33)63430-X/pdf ) ?that a 10% preoperative weight loss improves long-term weight loss after surgery and reduces perioperative complications.? Insurance carriers such as [facility] have endorsed my recommendations ?and have included in their policies criteria to include a 10% preoperative weight loss requirement. PROCEDURE: Esophago-gastroscopy laparoscopic lysis of adhesions, laparoscopic sleeve gastrectomy and laparoscopic gastropexy INDICATIONS: This is a 55 year-old female who was electively scheduled for laparoscopic, possibly open sleeve gastrectomy. The risks and complications of the procedure were discussed with the patient in advance, particularly the possibility of ; pulmonary embolism; staple line leak; bleeding; GERD; cardiac, pulmonary, or renal complications; as well as long-term problems such as insufficient weight loss, vitamin deficiency, strictures, or ulcers. The patient understood all the risks, and was in agreement to proceed with surgery. DESCRIPTION OF PROCEDURE: After informed consent was obtained from the patient, the patient was given preoperative antibiotics, and was transferred to the operating room. After successful induction of general anesthesia, pneumatic compression devices were placed on both lower extremities. An upper endoscopy was performed next. The oropharynx and esophagus appeared to be within normal limits. There was no diaphragmatic hernia present consistent with the findings of the preoperative upper GI. The stomach was entered. Then after all fluid and air were suctioned and the stomach was fully decompressed, the scope was withdrawn and secured in the mid esophagus. The patient was then prepped and draped in the usual sterile manner, and abdominal access was established at the right upper quadrant with the Garcia technique. A 12 mm blunt port was inserted, and the abdomen was insufflated with CO2 to a pressure of 15 mmHg. Under direct visualization, additional ports were placed, specifically two 5 mm Versi-step ports to the left upper quadrant, and a 5 mm Versi-Step port to the right upper quadrant. 1% lidocaine plain was used to infiltrate all port sites as well as all fascia defects. Using the EndoClose suture passer device, I placed a #1 Polysorb tie across the falciform ligament in order to retract it up against the abdominal wall and prevent injury of the ligament with our instruments during the procedure. There were adhesions in the abdomen involving the omentum and the left anterior abdominal wall. Those were lysed completely with the ultrasonic device. Following that, the patient was placed in a steep reverse Trendelenburg position. An additional 5 mm port was placed to the right flank for the Mediflex retractor that was used to retract the left lobe of the liver. The gastro-esophageal fat pad was opened with the ultrasonic device (Thunderbeat, Olympus) and the anterior esophagus and hiatus were exposed. The angle of His was opened with the ultrasonic device the fundus of the stomach from any diaphragmatic and splenic attachments. I then opened the gastrocolic ligament between the transverse colon and the greater curvature of the stomach with the ultrasonic device to enter the lesser sac and facilitate the ligation of the short gastric vessels. I started at a mid-point along the greater curvature and using the Thunderbeat, all short gastric vessels were divided all the way to the angle of His until the left phil was completely dissected at its entirety. I then divided the gastro-colic ligament distally to a distance of about 3-4 cm proximal to the esophagus. The stomach was then divided transversely with one Endo ANA-45 purple and four ANA-60 articulating orange loads using the AEON stapler and loads. Every effort was made that the gastric sleeve had a tubular shape and an even caliber throughout. Once the sleeve resection was completed, the staple line of the gastric sleeve was reinforced with Hemoclips. The resected stomach was retrieved without difficulty from the Garcia port. A gastropexy was then performed in order to prevent postoperative GERD and partial gastric volvulus. Several interrupted 2.0 Surgidac sutures were placed between the sleeve's staple line and the previously divided greater omentum and gastro-colic ligament using the Endo-Stitch device. ?An upper endoscopy was performed. There was no narrowing at the GE junction. The scope was easily advanced all the way to the pylorus which was clearly visualized. There was no narrowing anywhere and the sleeve's caliber was even throughout. The sleeve's staple line was inspected and there was no evidence of ischemia, bleeding or dehiscence. At that point the gastroscope was withdrawn from the patient?s mouth while we were decompressing the bowel and the stomach from any remaining air. I looked into the lesser sac to see how the sleeve was situating and it was situating well. There was no bleeding from the staple line, spleen, or short gastric vessels. The Mediflex retractor was removed, and the undersurface of the liver was inspected and there was no bleeding. The patient was placed in supine position. I closed the fascial defect of the 12 mm port site with a figure of eight #1 Polysorb suture. Then 100 cc 0.25 % Marcaine plain with 10 mg of Dexamethasone were used to infiltrate the fascial closure as well as all skin incisions. At this point, the abdomen was deflated, all ports were removed under direct vision, and no bleeding was noted from any of the port sites. The skin incisions were irrigated with saline and were closed with 4-0 absorbable monofilament sutures. Steri-Strips and OpSites were used to cover all incisions. The patient was extubated and was transferred in stable condition to the recovery room for further care. I was present and performed all aguila parts of the procedure. Mr Ware was the marketing assistant manager. There were no residents to assist with this case. Jose Manuel Castaneda MD, PhD, FACS Surgeon: Paulino Castaneda MD Anesthesia: GETA, local and other (TAP block) Was an Flume Tender used for this Procedure?: No Flume Tender: Ibrahima Ware Estimated blood loss (mL): 10 IV fluids (mL): 3,000 Urine output (mL): 0 (No Abernathy to record) Pathology: other (Stomach) Condition: stable Disposition: PACU
--- NOTE | 2021-05-08 15:20 | PM.DS ---
DS: Providers Provider Date of Service: 05/09/21 Date of admission: 05/08/21 10:47 Primary care physician: Sheron Fenton MD DS: Summary Hospital Course Hospital Course: ADMITTING DIAGNOSIS: morbid obesity, DM, Asthma, HTN, Hyperlipidemia, GERD, CVA, ? DISCHARGE DIAGNOSIS: same, s/p laparoscopic sleeve gastrectomy ? PAST SURGICAL HISTORY: tubal ligation ? PROCEDURE: upper endoscopy, laparoscopic sleeve gastrectomy ? DISCHARGE SUMMARY: ? History of Present Illness: ? The patient is a?55 year-old woman with a BMI of?41 kg/m2 and associated co-morbidities as described above. The patient had extensive work-up,lost?23.2 lbs preoperatively and was electively scheduled for laparoscopic, possible open sleeve gastrectomy and gastropexy. Risks and complications of the surgery were discussed with the patient in advance, particularly the possibility of , pulmonary embolism, anastomotic leak, bleeding, bowel injury, GERD, cardiac, renal or pulmonary complications. The patient understood all the risks and was in agreement with the surgical plan. ? Hospital Course: ? The patient underwent an uneventful laparoscopic sleeve gastrectomy with gastropexy on the day of admission. Postoperatively, the patient was transferred to the surgical floor. The patient received IV Acetaminophen and IV dilaudid for pain control. Patient was started on bariatric phase 1 diet POD #0. On postoperative day one, the patient was feeling well without nausea, vomiting, fevers, or tachycardia. The patient had some mild incisional pain and the abdomen was soft. ? On the morning of postoperative day one, the patient was continued on 1 ounce of water or ice every half hour. During the day, the patient did fairly well, having some incisional pain, but able to ambulate adequately and to tolerate liquids well. ? Since the patient is doing well, we decided that the patient was ready to be discharged. The patient was given instructions to follow-up with me next week and to call my office for any fever over 101, persistent abdominal pain, nausea, vomiting, GERD, symptoms of DVT such as calf tenderness, or leg swelling, or pulmonary embolism such as chest pain or shortness of breath. The patient was also instructed to drink 40-60 ounces of liquids per day using the 1-ounce cups. The patient had been given prescriptions for Tylenol for pain, Zofran prn for nausea, and pantoprazole and carafate previously. The patient was encouraged to ambulate and use the incentive spirometer. The patient was allowed to shower, but no baths, and encouraged to stay active at home. All of these instructions were given to the patient personally. All questions were answered and the patient understood all instructions, the instructions were also given to the patient in print. Time Spent with Patient Time attestation: Total time spent providing and/or coordinating discharge services: Discharge coordination time: Less than 30 minutes Quality: Stroke Does the patient have a stroke diagnosis?: No Physical Exam Vital Signs: Vital Signs: Last Vital Signs Temp 97.2 F 05/08/21 15:04 Pulse 74 05/08/21 15:14 Resp 16 05/08/21 15:14 BP 125/58 L 05/08/21 15:14 Pulse Ox 98 05/08/21 15:14 BMI result Body Mass Index 36.9 DS: Data Data Completed and Pending Pending studies at discharge: Pending at discharge 05/08/21 14:15 Surgical [PTH] Routine Labs on day of discharge: Laboratory Results - last 24 hr 05/08/21 11:19 POC Glucose 94 Discharge Plan Discharge Patient Disposition: Home, Self-Care Discharge Diagnosis: s/p laparoscopic sleeve gastrectomy Referrals: Sheron Fenton MD [Primary Care Provider] - 1 Week Discharge Medications: Continued fluticasone furoate-vilanterol [Breo Ellipta] 100-25 mcg/dose blister with device 1 ea PO DAILY Qty: 60 RF: 6 albuterol sulfate 90 mcg/actuation HFA aerosol inhaler 2 puff PO Q6H PRN (Reason: bronchospasm) 30 Days Qty: 6.7 RF: 5 FreeStyle Lite Strips Strip 1 strip miscellaneous DAILY 30 Days Qty: 50 RF: 11 lisinopril 20 mg tablet 1 tab PO DAILY RF: 0 Breo Ellipta 100-25 mcg/dose blister with device 1 puff PO DAILY RF: 0 montelukast 10 mg tablet 10 mg PO DAILY RF: 0 atorvastatin 40 mg tablet 40 mg PO BEDTIME RF: 0 pantoprazole 40 mg tablet,delayed release (DR/EC) 40 mg PO DAILY Qty: 30 RF: 2 sucralfate 100 mg/mL suspension 10 ml PO BID Qty: 400 RF: 2 ondansetron HCl 4 mg tablet 4 mg PO Q12H Qty: 20 RF: 0 Held metformin 500 mg tablet 500 mg PO QPM RF: 0 Hold Instructions: until discussed with Dr Castaneda Eliquis 5 mg tablet 5 mg PO BID RF: 0 Hold Instructions: until discussed with Dr Castaneda Discontinued cholecalciferol (vitamin D3) 50 mcg (2,000 unit) tablet 50 mcg PO BEDTIME 90 Days Qty: 90 RF: 3 calcium carbonate [Tums 500] 500 mg calcium (1,250 mg) Tablet,Chewable 500 mg PO DAILY RF: 0 cyanocobalamin (vitamin B-12) 1,000 mcg capsule 1,000 mcg PO DAILY RF: 0 ascorbate calcium (vitamin C) 500 mg tablet 500 mg PO BID RF: 0 omeprazole 20 mg capsule,delayed release(DR/EC) 20 mg PO DAILY RF: 0 polyethylene glycol 3350 [Miralax] 17 gram powder in packet 17 g PO DAILY Qty: 14 RF: 0 Diet: other Activity on Discharge: No heavy lifting Stand Alone Forms: Patient Portal Discharge page Care Plan Goals: weight loss Health Concerns: obesity Plan of Treatment: No tub baths, sex or returning to work until discussed at first post op appointment. No exercise, alcohol, tobacco or illegal drug use. Continue to use incentive spirometer hourly while awake. Walk in home for 5- 10 minutes every 2 hours during the first week. Follow all instructions in the bariatric handbook and call with any questions.Discharge Instructions 1. Please call your doctor or come back to the emergency room should any new symptoms arise. 2. You will receive a courtesy call from [facility] 24-48 hours after discharge. 3. Activity: abstain from alcohol, practice limited stair climbing, no bending, no driving, no exercise, no illicit substances, no lifting, no sex, no tub bath, no work. 4. Diet: continue as discussed with Dr. Castaneda. 5. Dressing Change/Wound Care: Your incision is covered by clear bandages and guaze underneath. If the area is tender, you may apply an ice pack for short intervals (no more than 20 minutes on, followed by at least 20 minutes off). Do not apply heat. Do not use creams, lotions, or topical antibiotics unless instructed to do so by your surgeon. These can cause infection or allergic reaction. 6. Call your doctor if: - Your temperature exceeds 101.5 F - You experience excessive pain or swelling - You have an unexpected reaction to medication - You have excessive bleeding - You experience continued vomiting/nausea - Your incision begins to separate - Your incision shows signs of infection such as increased redness, swelling, excessive pain, heat, or drainage (light blood or clear fluid is normal) 7. General instructions: No lifting greater than 5 lbs for the next 4 weeks[address] within 24 hours of taking narcotic pain medications. If you do not move your bowels in the next 2 days, please take milk of magnesia over the counter. Please follow the post op diet and do not advance your diet until you are seen in the office in about 2 weeks. Please walk around your home every hour or two to prevent blood clots from forming in your legs. You do not need to wake from sleeping to walk. Please sleep in a bed or couch to prevent kinking at the hips and knees. Please take your incentive spirometer (your lung force dispatcher) home with you and use it for the next few days to prevent pneumonias. You may shower, no hot tubs, baths or swimming pools. Please call the office with any questions or concerns such as increasing abdominal pain, fever, chills, shortness of breath, chest pain, leg pain or swelling, or redness or drainage from your incisions. Please stay on stage 3 diet which includes sugar free clear liquids such as ice pops and jello and broth and crystal light. Avoid all carbonation. Please drink 3 protein shakes with at least 25-30 grams of protein daily or 3 of the Celebrate 4:1 shakes which can be purchased in our office. The Celebrate shakes have all of the bariatric vitamins you need if you consume these shakes. If you are drinking other protein shakes, you will need to purchase the Celebrate multivitamins and calcium that we provide in the office (they will provide all the vitamins you need). Please make sure you are consuming at least 40-60 ounces of water in addition to your 3 protein shakes daily. Do not hesitate to contact the office with any questions at . The patient's medical history has been reviewed and they are considered low risk for post op DVT and therefore DVT prophylaxis is not considered necessary. Travel after surgery was reviewed. The patient has not disclosed any travel plans during the first 30 days after surgery and they have been advised that within the first 30 days after surgery any bus, plane, train or car travel over 2 hours in duration is contraindicated due to the possibility of developing blood clots from immobility. Any travel, needs to include periods of ambulation of 10 minutes in duration every 2 hours.? The patient was instructed to discuss any plans for travel during this period with their bariatric surgeon. Assessment: stable s/p laparoscopic sleeve gastrectomy
--- NOTE | 2021-05-08 15:24 | MHC.CM.PN ---
Attempted to meet with patient in PACU re: Dispo planning. Patient just out of OR, not awake. Will follow-up in 05/09 AM.
[2021-05-08 15:34] LABS: Hematocrit 40.5 % (37.0-47.0); Hemoglobin 12.6 g/dl (12.0-16.0)
[2021-05-08] MEDS: Lactated Ringers 1,000 ML 150 ML IVCONT ×2 (15:36→21:39)
[2021-05-08] MEDS: Famotidine/PF 20 MG/2 ML VIAL IVPUSH ×2 (15:39→20:36)
[2021-05-08 15:49] LABS: Anion Gap 13 (12-20); Blood Urea Nitrogen 14 mg/dL (9-16); Calcium 8.6 mg/dL (8.4-10.2); Carbon Dioxide 23 mmol/L (22-29); Chloride 109 mmol/L (96-108); Creatinine Clr Calc Pharmacy 105.6; Estimated Glomerular Filt Rate > 60; Glucose Random 127 mg/dL (60-115); Potassium 3.9 mmol/L (3.3-5.1); Sodium 141 mmol/L (135-145)
[2021-05-08] MEDS: 0.9 % Sodium Chloride Flush 3 ML SYRINGE IVFLUSH (20:36)
[2021-05-08] MEDS: ondansetron HCL 4 MG/2 ML VIAL IVPUSH (23:23)
[2021-05-09] VITALS: BP 129/63; PULSE 75; RESP 16; TEMP 36.4; O2SAT 95
[2021-05-09 03:19] VITALS: BP 129/62; PULSE 89; RESP 16; TEMP 37.4; O2SAT 96
[2021-05-09] MEDS: Lactated Ringers 1,000 ML 150 ML IVCONT ×2 (04:10→11:32)
--- NOTE | 2021-05-09 05:19 | PC.NURSE ---
pt has 2 different orders for fluids - LR at 100 and LR at 150. [employer] message sent to BONILLA Stephens to confirm, he said to run LR at 150 ml/hr.
[2021-05-09 05:42] LABS: MANUAL DIFF FLAG NO
[2021-05-09 05:48] LABS: Eosinophils Percent Auto 0.2 % (0-4); Hematocrit 39.6 % (37.0-47.0); Hemoglobin 12.2 g/dl (12.0-16.0); Imm Gran Abs Auto 0.03 X10*3/uL (0.00-0.03); Imm Gran Pct Auto 0.5 % (0.0-0.4); Lymphocytes Percent Auto 14.3 % (20-40); Mean Corpuscular HGB Conc 30.8 g/dl (31.0-35.0); Mean Corpuscular Hemoglobin 25.5 pg (27.0-33.0); Mean Corpuscular Volume 82.8 fL (80.0-98.0); Monocytes Absolute Auto 0.4 X10*3/uL (0.1-1.2); Monocytes Percent Auto 5.7 % (2-11); Neutrophils Absolute Auto 5.3 x10*3/uL (2.0-8.3); Neutrophils Percent Auto 79.3 % (45-73); Platelet Count 219 X10*3/uL (160-400); Red Blood Count 4.78 X10*6/uL (4.20-5.50); Red Cell Distribution Width 14.6 % (11.0-16.0); White Blood Count 6.6 X10*3/uL (4.8-10.8)
[2021-05-09] MEDS: ondansetron HCL 4 MG/2 ML VIAL IVPUSH (06:11)
[2021-05-09 06:17] LABS: Anion Gap 12 (12-20); Blood Urea Nitrogen 10 mg/dL (9-16); Calcium 9.2 mg/dL (8.4-10.2); Carbon Dioxide 26 mmol/L (22-29); Chloride 106 mmol/L (96-108); Creatinine Clr Calc Pharmacy 99.5; Estimated Glomerular Filt Rate > 60; Glucose Random 124 mg/dL (60-115); Potassium 3.9 mmol/L (3.3-5.1); Sodium 140 mmol/L (135-145)
[2021-05-09 07:29] VITALS: BP 153/77; PULSE 75; RESP 18; TEMP 37.3; O2SAT 99
[2021-05-09] MEDS: Famotidine/PF 20 MG/2 ML VIAL IVPUSH (09:04)
[2021-05-09] MEDS: lisinopriL 20 MG TABLET PO (09:04)
[2021-05-09 10:39] VITALS: BP 152/72; PULSE 64; RESP 18; TEMP 37; O2SAT 99
[2021-05-09 12:06] VITALS: O2SAT 93
[2021-05-09 12:13] LABS: Glucose, Whole Blood 73 mg/dL (60-115)
--- NOTE | 2021-05-09 12:44 | MHC.CM.PN ---
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 D/C PLAN: HOME TODAY W/RESUMP OF SOFTWARE PERFORMANCE ENGINEER, PTS BROTHER FOR TRANSPORT
== END 2021-05-09 13:43 | disposition home or self-care (01) | DRG 621 ==
LOC: HO.SSSA 15:19 → HO.S3 17:32
PROVIDERS: Physician Assistant Surgical; Admitting Provider Surgery; PCP General Practice; Visit Provider Surgery
PROC: 0DB64Z3 Excision of Stomach, Percutaneous Endoscopic Approach, Vertical (ICD-10-PCS; CPT 43845; principal; 2021-05-08 13:40)
DX: E66.01 Morbid (severe) obesity due to excess calories (principal); K21.9 Gastro-esophageal reflux disease without esophagitis; J45.909 Unspecified asthma, uncomplicated; I10 Essential (primary) hypertension; E11.9 Type 2 diabetes mellitus without complications; I69.312 Visuospatial deficit and spatial neglect following cerebral infarction; Z68.37 Body mass index [BMI] 37.0-37.9, adult; K66.0 Peritoneal adhesions (postprocedural) (postinfection); I51.7 Cardiomegaly; E78.5 Hyperlipidemia, unspecified; K76.0 Fatty (change of) liver, not elsewhere classified; Z20.822 Contact with and (suspected) exposure to COVID-19; Z79.01 Long term (current) use of anticoagulants; Z79.899 Other long term (current) drug therapy
CPT/HCPCS: 36415; 80048; 82947; 85014; 85018; 85025; 86850; 86900; 86901; 87635; 88307; 88342; A4649; J0131; J1100; J1170; J1956; J2250; J2370; J2405; J3010

== ENCOUNTER → 2021-05-14 12:43 | Outpatient (BNVA) | payer OTHER, SELFPAY | PROVIDERS: PCP General Practice; Referring Provider General Practice; Visit Provider Surgery | DX: E66.9 Obesity, unspecified (principal); Z68.35 Body mass index [BMI] 35.0-35.9, adult | CPT/HCPCS: 99212 ==

== ENCOUNTER → 2021-06-27 09:00 | Outpatient (BNVA) | payer OTHER, SELFPAY | PROVIDERS: PCP General Practice; Referring Provider General Practice; Visit Provider Physician Assistant Surgical | DX: E66.9 Obesity, unspecified (principal); Z68.35 Body mass index [BMI] 35.0-35.9, adult | CPT/HCPCS: 99212 ==

== ENCOUNTER → 2021-08-08 09:11 | Outpatient (BNVA) | payer OTHER, SELFPAY | PROVIDERS: PCP General Practice; Referring Provider General Practice; Visit Provider Physician Assistant Surgical | DX: E66.9 Obesity, unspecified (principal); Z68.34 Body mass index [BMI] 34.0-34.9, adult | CPT/HCPCS: 99212 ==

== ENCOUNTER → 2021-09-08 09:00 | Outpatient (BNVA) | payer OTHER, SELFPAY | PROVIDERS: PCP General Practice; Referring Provider General Practice; Visit Provider Physician Assistant | DX: E66.9 Obesity, unspecified (principal); Z68.33 Body mass index [BMI] 33.0-33.9, adult; Z98.84 Bariatric surgery status | CPT/HCPCS: 99212 ==

== ENCOUNTER → 2021-11-11 13:59 | Outpatient (BNVA) | payer OTHER, SELFPAY | PROVIDERS: PCP General Practice; Visit Provider Physician Assistant | DX: E66.9 Obesity, unspecified (principal); Z68.31 Body mass index [BMI] 31.0-31.9, adult; Z98.84 Bariatric surgery status | CPT/HCPCS: 99212 ==

== ENCOUNTER → 2022-01-20 13:27 | Outpatient (BNVA) | payer OTHER, SELFPAY | PROVIDERS: PCP General Practice; Referring Provider General Practice; Visit Provider Physician Assistant Surgical | DX: E66.9 Obesity, unspecified (principal); Z68.31 Body mass index [BMI] 31.0-31.9, adult; Z98.84 Bariatric surgery status | CPT/HCPCS: 99212 ==

== ENCOUNTER 2022-02-04 09:11 | Outpatient (REF) | payer OTHER, SELFPAY ==
--- NOTE | ~2022-02-04 | MM_ITS ---
EXAMINATION: MM SCREENING DIGITAL BREAST TOMOSYNTHESIS, BILATERAL CLINICAL INFORMATION: Screening. Asymptomatic. The lifetime risk of breast cancer based on the Tyrer-Cuzick Model is 7.6%. COMPARISON: Mammography: January 31, 2021 and studies dating back to June 18, 2015 TECHNIQUE: Digital breast tomosynthesis is performed in both the craniocaudal and mediolateral oblique views along with computer-aided detection (CAD). Synthesized 2D images are generated from the tomosynthesis. FINDINGS: There are scattered areas of fibroglandular density (ACR BI-RADS breast composition Category b). There are no significant masses, abnormal calcifications, or other abnormalities. MM/MM tomosynthesis screening BI IMPRESSION: No significant changes from prior exam. ASSESSMENT: BI-RADS 1: Negative RECOMMENDATION: Routine annual mammography screening. This patient's information was entered into a reminder system with a target due date for their next mammogram.
== END 2022-02-04 09:12 | disposition home or self-care (01) ==
LOC: HO.MAMMO 09:11
PROVIDERS: PCP General Practice; Visit Provider General Practice
DX: Z12.31 Encounter for screening mammogram for malignant neoplasm of breast (principal)
CPT/HCPCS: 77063; 77067

== ENCOUNTER 2022-05-02 07:30 | Outpatient (REF) | payer OTHER, SELFPAY ==
[2022-05-02 07:42] LABS: MANUAL DIFF FLAG NO
[2022-05-02 07:54] LABS: Basophils Absolute Auto 0.1 X10*3/uL (0.0-0.2); Basophils Percent Auto 1.6 % (0-2); Eosinophils Absolute Auto 0.1 X10*3/uL (0.0-0.4); Eosinophils Percent Auto 3.2 % (0-4); Hematocrit 42.7 % (37.0-47.0); Hemoglobin 13.5 g/dl (12.0-16.0); Imm Gran Abs Auto 0.01 X10*3/uL (0.00-0.03); Imm Gran Pct Auto 0.2 % (0.0-0.4); Lymphocytes Absolute Auto 1.7 X10*3/uL (1.2-4.9); Lymphocytes Percent Auto 39.6 % (20-40); Mean Corpuscular HGB Conc 31.6 g/dl (31.0-35.0); Mean Corpuscular Hemoglobin 27.3 pg (27.0-33.0); Mean Corpuscular Volume 86.4 fL (80.0-98.0); Mean Platelet Volume 10.4 fL (9.4-12.3); Monocytes Absolute Auto 0.4 X10*3/uL (0.1-1.2); Monocytes Percent Auto 9.2 % (2-11); Neutrophils Percent Auto 46.2 % (45-73); Platelet Count 227 X10*3/uL (160-400); Red Blood Count 4.94 X10*6/uL (4.20-5.50); Red Cell Distribution Width 14.8 % (11.0-16.0); White Blood Count 4.4 X10*3/uL (4.8-10.8)
[2022-05-02 08:02] LABS: Estimated Average Glucose 126 mg/dL; Hemoglobin A1C 151.5548 umol/L
[2022-05-02 08:28] LABS: Alanine Aminotransferase 35 U/L (0-31); Albumin Level 3.9 g/dL (3.5-5.0); Alkaline Phosphatase 105 U/L (39-117); Anion Gap 10 (12-20); Aspartate Amino Transferase 27 U/L (5-31); Bilirubin Total 0.5 mg/dL (0.0-1.0); Blood Urea Nitrogen 14 mg/dL (9-16); C Reactive Protein < 0.10 mg/dL (< or = 0.50); Calcium 8.9 mg/dL (8.4-10.2); Carbon Dioxide 29 mmol/L (22-29); Chloride 109 mmol/L (96-108); Cholesterol 129 mg/dL; Estimated Glomerular Filt Rate > 60; Glucose Random 98 mg/dL (60-115); HDL Cholesterol 51 mg/dL; Iron 76 mcg/dL (30-160); LDL Cholesterol Calculated 70 mg/dl; Percent Iron Saturation 25 % (15-50); Potassium 3.8 mmol/L (3.3-5.1); Sodium 144 mmol/L (135-145); Total Iron Binding Capacity 304 mcg/dL (228-428); Total Protein 6.3 g/dL (6.5-8.0); Triglycerides 43 mg/dL; Unsaturated Iron Binding 228 ug/dL
[2022-05-02 08:47] LABS: Ferritin 19 ng/mL (10-250); Insulin 9 uU/mL (2-29); TSH reflex Free T4 1.79 uIU/mL (0.32-4.0); Vitamin D 25-OH Total 26.8 ng/mL (>30)
[2022-05-02 09:04] LABS: Folate 18.2 ng/mL (> or = 4.0); Vitamin B12 440 pg/mL (200-900)
[2022-05-04 13:24] LABS: Calcium (PTHI) 8.9 mg/dL (8.6-10.4); PTHI 104 pg/mL (16-77)
[2022-05-06 19:28] LABS: Zinc 75 mcg/dL (60-130)
[2022-05-07 13:58] LABS: Vitamin A 46 mcg/dL (38-98)
[2022-05-08 13:03] LABS: Vitamin B1 28 nmol/L (8-30)
== END 2022-05-02 07:31 | disposition home or self-care (01) ==
LOC: HO.LAB 07:30
PROVIDERS: PCP General Practice; Visit Provider Physician Assistant
DX: E66.9 Obesity, unspecified (principal); Z98.84 Bariatric surgery status
CPT/HCPCS: 36415; 80053; 80061; 82306; 82607; 82728; 82746; 83036; 83525; 83540; 83970; 84425; 84443; 84590; 84630; 85025; 86140

== ENCOUNTER → 2022-05-19 15:31 | Outpatient (BNVA) | payer OTHER, SELFPAY | PROVIDERS: PCP General Practice; Visit Provider Physician Assistant Surgical | DX: E66.9 Obesity, unspecified (principal); Z68.33 Body mass index [BMI] 33.0-33.9, adult; Z98.84 Bariatric surgery status | CPT/HCPCS: 99212 ==

== ENCOUNTER 2023-01-28 10:35 | Outpatient (AMB) | payer OTHER, SELFPAY ==
--- NOTE | 2023-01-28 10:03 | MHC.OFFVISWM ---
Intake Intake Visit Reasons: (VIDEO) PO LSG 05/08/21 Allergies latex [LATEX] Allergy (Mild, Verified 05/19/22 15:35) RASH, HIVES aspirin [ASA] Allergy (Unknown, Verified 05/19/22 15:35) GI bleed Penicillins [PCN] Allergy (Unknown, Verified 05/19/22 15:35) HIVES HPI HPI Comments History of Present Illness Details This?is a?[]?yo [] who is s/p LSG with[out] hiatal hernia repair on?[]. Presents for [] post op visit. Weight at last visit on [] was [] pounds with a BMI of [], weight today is [] pounds, representing a [] pound weight loss with a BMI today of [].? No complaints of nausea, emesis, abdominal pain or reflux, or constipation. 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 Program for activities; pt reports since she was often alone she enjoys they social interaction. Exercise routine includes: 6 days a week treadmill, 300+ calories (40-45min) or exercise classes through her program Did the patient ever have any of these conditions and are they resolved or still being treated? GERD: improved, occasionally uses Tums VASILIY:? resolved DM:? resolved HTN:? lisinopril Hyperlipidemia:? atorvastatin? Post op complications:? n/a PFSH Medical History Abnormal EKG Allergic rhinitis BMI 40.0-44.9, adult Chronic anticoagulation Diabetes mellitus Epistaxis Essential hypertension GERD (gastroesophageal reflux disease) History of stroke Hypovitaminosis D Moderate asthma Morbid obesity On anticoagulant therapy Pure hypercholesterolemia Surgical History History of ankle surgery History of left breast biopsy History of tubal ligation Hx of colonoscopy Family History Father No problems noted. Mother No problems noted. Sister No problems noted. Sister No problems noted. Sister No problems noted. Brother Stroke Brother Hx of heart surgery Brother No problems noted. Daughter No problems noted. Son No problems noted. 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
--- NOTE | 2023-01-28 10:05 | MHC.OFFVISWM ---
Intake VS Expanded 01/28/23 10:11 Height 5 ft 3 in Weight 195 lb BMI 34.5 Intake Visit Reasons: (VIDEO) PO LSG 05/08/21 Allergies latex [LATEX] Allergy (Mild, Verified 05/19/22 15:35) RASH, HIVES aspirin [ASA] Allergy (Unknown, Verified 05/19/22 15:35) GI bleed Penicillins [PCN] Allergy (Unknown, Verified 05/19/22 15:35) HIVES Medication List - Last Reconciled 01/28/23 by BONILLA Lopez albuterol sulfate 90 mcg/actuation 2 puffs PO Q6H PRN 30 days apixaban 5 mg PO BID atorvastatin 40 mg PO BEDTIME calcium citrate-vitamin D3 315 mg-5 mcg (200 unit) (Calcium Citrate + D) 1 tab PO BID cholecalciferol (vitamin D3) 25 mcg PO DAILY fluticasone furoate-vilanterol 100-25 mcg/dose (Breo Ellipta) 1 puff PO DAILY levothyroxine 25 mcg PO DAILY lisinopril 1 tab PO DAILY montelukast 10 mg PO DAILY [id number]-vit K 45 mg iron- 800 mcg-120 mcg (Bariatric Multivitamins) caps PO paroxetine HCl 10 mg PO DAILY vitamin A 1 cap PO DAILY HPI HPI Comments History of Present Illness Details This?is a?57?yo female who is s/p LSG 05/08/2021. Presents for 1 year 9 month post op visit. Weight at last visit on 05/19/2022 was 188.6 pounds with a BMI of 33.4, weight today is 195 pounds, representing a 6.4 pound weight loss with a BMI today of 34.5.? No complaints of nausea, emesis, abdominal pain or reflux, or constipation. Pt reports she had lost weight to 170lbs, then regained. Moved to [place]. Present meal plan includes: recently moved so has not been consistent with protein intake eats small portions of dinners from program for elderly- is a variety of foods will have one protein shake per day- Premier Exercise routine includes: has not been exercising since moving, no more classes at her senior program did buy a home exercise machine , but hasn't used in 2 weeks due to accident resulting in a broken toe, wearing a boot for the next 4 weeks Did the patient ever have any of these conditions and are they resolved or still being treated? GERD: improved, occasionally uses Tums VASILIY:? resolved DM:? resolved HTN:? lisinopril Hyperlipidemia:? atorvastatin? Post op complications:? none PFSH Medical History Abnormal EKG Allergic rhinitis BMI 40.0-44.9, adult Chronic anticoagulation Diabetes mellitus Epistaxis Essential hypertension GERD (gastroesophageal reflux disease) History of stroke Hypovitaminosis D Moderate asthma Morbid obesity On anticoagulant therapy Pure hypercholesterolemia Surgical History History of ankle surgery History of left breast biopsy History of tubal ligation Hx of colonoscopy Family History Father No problems noted. Mother No problems noted. Sister No problems noted. Sister No problems noted. Sister No problems noted. Brother Stroke Brother Hx of heart surgery Brother No problems noted. Daughter No problems noted. Son No problems noted. 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 Either- 2 protein shakes and one small meal (with focus on protein/veg) or 1 shake, 1 bar, 1 yogurt, and one small meal Psychology today website access texted to pt as she requested a Maori speaking therapist near her in [place] to help her with anxiety around food. RTC 3 months for annual visit. Patient is obese and is not considered stable at this time. I spent a total of 30 minutes reviewing/updating records, examining the patient and counseling the patient on weight management as detailed above. Telehealth Telehealth Location of provider rendering services: practice address Location of patient: address on file Patient Identification confirmed using: Name, : Yes Telehealth method: voice only Patient verbally consented to treatment: Yes Patient verbally consented to billing insurance company: Yes Patient informed of any privacy concerns related to visit: Yes Minutes spent on Phone/Video with Pt.: 15 Coding Level of Care Code Tele Est Pt Level 4 (32712) Diagnoses S/P laparoscopic sleeve gastrectomy Z98.84 Obesity E66.9
[2023-01-28 10:11] VITALS: BMI 34.5
== END 2023-01-28 10:35 | disposition home or self-care (01) ==
LOC: HO.HBS 10:35
PROVIDERS: PCP General Practice; Visit Provider Physician Assistant Surgical
DX: E66.9 Obesity, unspecified (principal); Z68.34 Body mass index [BMI] 34.0-34.9, adult; Z90.3 Acquired absence of stomach [part of]; Z98.84 Bariatric surgery status
CPT/HCPCS: 99442

== ENCOUNTER → 2023-01-28 10:35 | Outpatient (BNVA) | payer OTHER, SELFPAY | PROVIDERS: PCP General Practice; Visit Provider Physician Assistant Surgical ==